=== PATIENT | female | born 2000 | race Hispanic/Latino ===

== ENCOUNTER 2025-05-27 12:39 | Emergency (ER) | payer SELFPAY ==
[2025-05-27 12:41] VITALS: BP 131/79; PULSE 107; RESP 18; TEMP 36.4; O2SAT 97; BMI 26.4
--- NOTE | 2025-05-27 13:07 | US_ITS ---
PROCEDURE: TRANSVAGINAL NON- 05/27/2025 REASON FOR EXAM: VAGINAL BLEEDING TECHNIQUE: Procedure Code: USTVAG Modality: US Procedure: TRANSVAGINAL NON- COMPARISON: None FINDINGS: LMP: May 18, 2025. Measurements: Uterus: 9.1 cm x 5 cm x 3.1 cm with a volume of 73.9 mL Endometrial Thickness: 1 mm. It is trilaminar. Right Ovary: 2.6 cm x 2.4 cm x 1.9 cm with a volume of 6.1 mL. Left Ovary: 2.6 cm x 2.5 cm x 2.1 cm with a volume of 7.1 mL. Uterus: Normal size, myometrial echotexture, and contour. Endometrium: Unremarkable. Right ovary: Normal size and echotexture. Left ovary: Normal size and echotexture. Other: No large pelvic mass identified. US/Transvaginal Non- IMPRESSION: NORMAL transvaginal PELVIC ULTRASOUND. Reading Location: [place] [id number]
--- NOTE | 2025-05-27 13:12 | ED.VIS.FEGU ---
HPI HPI - Female History of Present Illness Chief Complaint: Vag Bleeding Narrative Narrative: Chief complaint and HPI: 24-year-old female who is presents for evaluation of vaginal bleeding. 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 Patient states that she has had irregular menstrual cycles her entire life. Last year she had intermittent spotting between her periods however this resolved after couple months. Patient states she is having intermittent bleeding between her periods again. Last full. Was and lasted approximately 5 days. States she started to spot again May 18. Denies possibility of as she is not sexually active. Denies any fever, chills, abdominal pain, nausea, vomiting dysuria. States her periods are not heavy. Does not follow with an SWITCH TENDER. Review of systems: See HPI Medications: As listed on the chart Allergies: As listed on the chart PFSH: Per chart Vital signs: As listed on the chart. Reviewed. Physical exam: Gen: A&O x3, NAD Head: Normocephalic, atraumatic Eyes: No sclera icterus, conjunctiva clear ENT: Moist mucous membranes CV: RRR, no murmurs Resp: Lungs CTA BL, no w/r/c GI: Abd soft, non-distended, non-tender, no r/r/g Pelvic: Normal external genitalia. No lesions, masses, or rashes appreciated. Vaginal bleeding. Cervix is non-friable. Cervix is closed. No cervical motion tenderness appreciated. No sign of PID on examination. Musc: Moves all extremities Skin: Warm, dry Psych: Cooperative, appropriate mood and affect PFSH PFSH Medical History no medical history Home Medications Medication Instructions Recorded Last Taken Type desogestrel 0.15 mg-ethinyl 1 tab PO DAILY 05/27/25 05/24/25 History estradiol 0.03 mg tablet (Apri) Allergy/AdvReac Type Severity Reaction Status Date / Time No Known Allergies Allergy Verified 05/27/25 12:44 Family History no significant family his Surgical History no surgical history Social History Smoking Status: Never smoker EXAM Physical Exam Const Vital Signs: 05/27/25 12:41 05/27/25 14:40 Temperature 97.6 F L Temperature Source Oral Pulse Rate 107 H 80 Respiratory Rate 18 18 Blood Pressure 131/79 H 122/78 H Blood Pressure Mean 96 92 Pulse Ox 97 98 Oxygen Delivery Method Room Air MDM MDM MDM Narrative Medical decision making narrative: 24-year-old female who is presents for evaluation of vaginal bleeding. 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 Patient states that she has had irregular menstrual cycles her entire life. Last year she had intermittent spotting between her periods however this resolved after couple months. Patient states she is having intermittent bleeding between her periods again. Differential diagnosis includes but is not limited to dysfunctional uterine bleeding, fibroids, , anemia, UTI. Laboratory workup ordered including transvaginal ultrasound. CBC with mild leukocytosis of 12.2. No anemia. Platelets unremarkable. BMP unremarkable. UA negative for UTI but positive for blood. Patient has vaginal bleeding. Urine negative. Transvaginal ultrasound with no acute abnormality. At this point in time, patient has dysfunctional uterine bleeding. Recommend her following up with SWITCH TENDER. Given that she has no SWITCH TENDER I did try to contact the on-call physician for SWITCH TENDER to however we are and unable to reach them. Patient stable to discharge home. Educated follow-up with SWITCH TENDER and primary care physician. If she is develops uterine cramping recommend ibuprofen, gentle exercise, heating pad. She confirmed understand the plan. Patient will discharge home. Return precautions explained. Impression: 1. Dysfunctional uterine bleeding Lab Data Labs: Laboratory Results - last 24 hr 05/27/25 05/27/25 13:15 13:20 WBC 12.2 H RBC 4.93 Hgb 12.7 Hct 39.7 MCV 80.5 L MCH 25.8 L MCHC 32.0 RDW Std Deviation 48.2 H RDW Coeff of Lynn 16.5 H Plt Count 311 MPV 10.5 Immature Gran % (Auto) 0.200 Neut % (Auto) 52.9 Lymph % (Auto) 41.8 H [place] % (Auto) 4.1 Eos % (Auto) 0.8 Baso % (Auto) 0.2 Absolute Neuts (auto) 6.5 Absolute Lymphs (auto) 5.11 H Nucleated RBC % 0 Sodium 138 Potassium 3.3 Chloride 104 Carbon Dioxide 22.6 Anion Gap 12 BUN 10 Creatinine 0.50 L Estim Creat Clear Calc 147.19 Est GFR (MDRD) Non-Af 132 BUN/Creatinine Ratio 19.0 Glucose 101 H Calcium 9.5 Urine Color Yellow Urine Clarity Clear Urine pH 7.0 Ur Specific [place] 1.015 Urine Protein 30 H Urine Glucose (UA) Normal Urine Ketones 5 H Urine Occult Blood 250 H Urine Nitrite Negative Urine Bilirubin Negative Urine Urobilinogen Normal Ur Leukocyte Esterase Negative Urine RBC 50-100 SEEN Urine WBC 0 SEEN Ur Squamous Epith Cells 0-5 SEEN Urine Bacteria 0 SEEN Urine Mucus 0 SEEN Urine Test Negative Radiography Diagnostic Testing: Clinical Impression(s) from Imaging Studies Transvaginal US 05/27/25 13:07 IMPRESSION: NORMAL transvaginal PELVIC ULTRASOUND. Reading Location: [place] [id number] Discharge Plan Triage Chief Complaint: Vag Bleeding ED Provider: Vinayak Carson Dx/Rx/DC Orders Prescriptions: No Action desogestrel-ethinyl estradiol [Apri] 0.15-0.03 mg tablet 1 tab PO DAILY Primary Care Provider: Care Physician,No Primary Referrals: NOT,DEFINED [Non-Staff, None] Print Language: [place]
[2025-05-27 13:23] LABS: Hematocrit 39.7 % (37-47); Hemoglobin 12.7 g/dL (12.0-15.0); Immature Granulocytes Count 0.030 X10^3/uL (0.0-0.0); Mean Corp Hgb Conc 32.0 g/dL (32-36); Mean Corpuscular Volume 80.5 fL (81-99); Mean Platelet Vol. 10.5 fl (6.2-12.0); NRBC Flagged by Analyzer 0 % (0-5); POSITIVE DIFFERENTIAL YES; Platelet Count 311 K/mm3 (150-450); RBC Distribution Width CV 16.5 % (11.6-14.6); RBC Distribution Width SD 48.2 fl (35.1-43.9); Red Blood Count 4.93 M/mm3 (4.2-5.4); White Blood Count 12.2 K/mm3 (4.4-11.0)
[2025-05-27 13:26] LABS: Color, Urine Yellow (Yellow); Glucose, Dipstick Normal (Normal); Ketone-Dipstick 5 mg/dl (Negative); Leukocyte Esterase-Dipstick Negative /ul (Negative); Mucous, Urine 0 SEEN /hpf (<or=2+); Nitrite-Dipstick Negative (Negative); Occult Blood-Urine 250 /ul (Negative); Protein-Dipstick 30 mg/dl (Negative); Specific Gravity, Urine 1.015 (1.002-1.030); Urine Bilirubin Dipstick Negative (Negative)
[2025-05-27 13:32] LABS: Red Blood Cells-Urine 50-100 SEEN /hpf (0-5); Squamous Epithelial Cells - UA 0-5 SEEN /hpf (5-10)
[2025-05-27 13:33] LABS: Internal QC Validated? YES +Cl - CLEAR BKGD; Pregnancy, Urine Negative Negative; Record Kit Lot#,Urine Preg 980607
[2025-05-27 13:34] LABS: Differential Indicated SCAN CRITERIA MET
[2025-05-27 14:04] LABS: Anion Gap 12 (5-15); BUN 10 mg/dL (4-19); BUN/Creat Ratio 19.0 RATIO (10-20); Calcium,Total 9.5 mg/dL (7.6-11.0); Carbon Dioxide 22.6 mmol/L (21.0-32.0); Chloride 104 mmol/L (98-108); Estimated Creatinine Clearance 147.19 ml/min (50-250); Glucose 101 mg/dL (70-99); Potassium 3.3 mmol/L (3.3-5.1)
[2025-05-27 14:40] VITALS: BP 122/78; PULSE 80; RESP 18; O2SAT 98
[2025-05-27 15:29] VITALS: BP 116/80; PULSE 80; RESP 18; TEMP 36.7; O2SAT 98
== END 2025-05-27 15:32 | disposition home or self-care (01) ==
PROVIDERS: Emergency Provider Surgery; Visit Provider Surgery
DX: N93.8 Other specified abnormal uterine and vaginal bleeding (principal)
CPT/HCPCS: 76830; 80048; 81001; 81025; 85025; 99282; A4216